=== PATIENT | female | born 1980 | race Caucasian/White ===

== ENCOUNTER 2017-10-20 10:06 | Emergency (ER) | payer OTHER ==
[~2017-10-20] VITALS: Ht 157.5 cm; Wt 74.8 kg
[2017-10-20 10:15] VITALS: Ht 157.5 cm; Wt 74.8 kg
[2017-10-20 13:40] VITALS: BP 124/78
== END 2017-10-20 13:40 | disposition home or self-care (01) ==
LOC: ED 10:06
DX: S20.212A Contusion of left front wall of thorax, initial encounter (principal); S80.11XA Contusion of right lower leg, initial encounter; S63.501A Unspecified sprain of right wrist, initial encounter; M54.5 Low back pain; I10 Essential (primary) hypertension; Z88.0 Allergy status to penicillin; Z90.49 Acquired absence of other specified parts of digestive tract; V49.9XXA Car occupant (driver) (passenger) injured in unspecified traffic accident, initial encounter; Y93.I9 Activity, other involving external motion; Y92.89 Other specified places as the place of occurrence of the external cause; Y99.8 Other external cause status